=== PATIENT | male | born 1945 | race Caucasian/White ===

== ENCOUNTER 2016-12-11 11:27 | Inpatient (IN) | payer MEDICARE, OTHER ==
--- NOTE | 2016-12-11 11:29 | ED Physician Chart ---
Chief Complaint/HPI - Patient Information Date Seen:: 12/11/16 Time Seen:: 11:29 Chief Complaint:: CHEST PAIN History of Present Illness:: This 71-year-old male presents with a three-hour history of pain in the left upper chest. He's been having similar pains over the past 6 months intermittently and 3 months ago and had a treadmill test which was unremarkable. He rates the severity of the pain as a 7/10 and the pain radiates to his left shoulder and somewhat into his left upper extremity. There is no pleuritic component to the chest pain. He describes it mainly as cramping in nature. No associated nausea, shortness of breath or diaphoresis. The patient does not smoke and drinks only occasionally. The patient does not have hypertension or diabetes. The patient does have hypercholesterolemia. Allergies:: Allergies Allergy/AdvReac Type Severity Reaction Status Date / Time MDX Cephalexin [From Keflex] Allergy Verified 11/29/15 12:50 Past Medical History - Past Medical History Past Medical History: Dyslipidemia Social History: Non Smoker Employment:: Occasional alcohol and no use of illicit drugs. Surgical History: other (patient had back surgery 15 years ago.) Family Medical History - Family Member Daughter Ethnicity: Hx Family Cancer: No Hx Family Hypertension: No Hx Family Stroke: No Hx Family Seizures: No Hx Family Dementia: No Hx Family AIDS: No Hx Family HIV: No Hx Family COPD: No Hx Family Psychiatric Problems: No Hx Family Tuberculosis: No Physical Exam - Physical Examination General/Constitutional: Well-developed, well-nourished, Alert, Non-toxic appearing, Ambulatory Other Gen/Cons comments:: Does not appear to be in significant distress. Head: Atraumatic Eyes: Lids, conjuctiva normal, PERRL, EOMI Skin: Nl inspection, No rash, No skin lesions, No ecchymosis, Well hydrated, No lymphadenopathy ENMT: External ears, nose nl, Nasal exam nl, Lips, teeth, gums nl, Oropharynx nl , Tonsils nl Neck: Nontender, Full ROM w/o pain, No JVD, No nuchal rigidity, No mass, No stridor Respiratory: Nl effort/Exclusion, Clear to Auscultation, No Wheeze/Rhonchi/Rales Other Respiratory comments:: Chest wall is nontender to palpation. Cardio Vascular: RRR, No murmur, gallop, rubs, NL S1 S2 Other Cardio Vascular comments:: Good pulses in all 4 extremities. GI: No tenderness/rebounding/guarding, No organomegaly, No hernia, Normal BS's, Nondistended, No mass/bruits, No McBurney tenderness : No CVA tenderness Extremities: No tenderness or effusion, Full ROM, normal strength in all extremities, No edema Other Extremities comments:: No calf Tenderness and Homans sign is negative. Neuro/Psych: Alert/oriented, Normal sensory exam, Normal motor strength, Judgement/insight normal, Mood normal, Normal gait Misc: No paraspinal tenderness Labs/Radiology/EKG Results - Lab Results Results: Single view chest x-ray: No cardiomegaly. No evidence of CHF. No areas of pulmonary consolidation or infiltrate. There appears to be atelectatic changes in the left lung base. No pneumothorax. No areas of pulmonary consolidation. Impression: No acute cardiopulmonary findings. EKG: Normal sinus rhythm at a rate of 62 with no ectopy. [place] is normal. Normal GA interval. QRS duration. Will QT interval. Patient has very low voltage in the frontal plane. No ST segment elevation or depression normal T waves. No Q waves. IMPRESSION: No acute ischemic findings. Laboratory Tests 12/11/16 12/11/16 12/11/16 11:40 11:40 11:40 WBC 6.7 RBC 5.21 Hgb 15.2 Hct 45.1 MCV 86.5 MCH 29.2 MCHC Differential 33.8 RDW 12.6 Plt Count 135 L D MPV 8.3 Neutrophils % 51.0 Lymphocytes % 35.7 Monocytes % 8.0 Eosinophils % 4.8 Basophils % 0.5 Sodium 137 Potassium 3.7 Chloride 103 Carbon Dioxide 28.1 Anion Gap 9.6 BUN 14 Creatinine 0.8 Est GFR ( Amer) > 60.0 Est GFR (Non-Af Amer) > 60.0 BUN/Creatinine Ratio 17.5 Glucose 109 H Calcium 9.7 Total Bilirubin 0.6 AST 17 ALT 25 Alkaline Phosphatase 89 Troponin I < 0.01 L B-Natriuretic Peptide Total Protein 6.9 Albumin 4.3 Globulin 2.6 Albumin/Globulin Ratio 1.7 TSH 12/11/16 12/11/16 12/12/16 11:40 20:35 04:30 WBC RBC Hgb Hct MCV MCH MCHC Differential RDW Plt Count MPV Neutrophils % Lymphocytes % Monocytes % Eosinophils % Basophils % Sodium Potassium Chloride Carbon Dioxide Anion Gap BUN Creatinine Est GFR ( Amer) Est GFR (Non-Af Amer) BUN/Creatinine Ratio Glucose Calcium Total Bilirubin AST ALT Alkaline Phosphatase Troponin I < 0.01 L < 0.01 L B-Natriuretic Peptide 8.7 Total Protein Albumin Globulin Albumin/Globulin Ratio TSH 12/12/16 12/12/16 12/12/16 04:30 04:30 04:30 WBC 6.2 RBC 5.10 Hgb 14.7 Hct 44.3 MCV 86.9 MCH 28.9 MCHC Differential 33.2 RDW 12.5 Plt Count 119 L MPV 8.8 Neutrophils % 53.1 Lymphocytes % 31.5 Monocytes % 9.2 Eosinophils % 5.5 H Basophils % 0.7 Sodium 138 Potassium 3.7 Chloride 107 Carbon Dioxide 28.5 Anion Gap 6.2 L BUN 16 Creatinine 0.7 Est GFR ( Amer) > 60.0 Est GFR (Non-Af Amer) > 60.0 BUN/Creatinine Ratio 22.9 Glucose 113 H Calcium 9.5 Total Bilirubin 0.6 AST 16 ALT 22 Alkaline Phosphatase 85 Troponin I B-Natriuretic Peptide Total Protein 6.5 Albumin 3.9 L Globulin 2.6 Albumin/Globulin Ratio 1.5 TSH 1.21 12/12/16 11:40 WBC RBC Hgb Hct MCV MCH MCHC Differential RDW Plt Count MPV Neutrophils % Lymphocytes % Monocytes % Eosinophils % Basophils % Sodium Potassium Chloride Carbon Dioxide Anion Gap BUN Creatinine Est GFR ( Amer) Est GFR (Non-Af Amer) BUN/Creatinine Ratio Glucose Calcium Total Bilirubin AST ALT Alkaline Phosphatase Troponin I < 0.01 L B-Natriuretic Peptide Total Protein Albumin Globulin Albumin/Globulin Ratio TSH The CBC and comprehensive metabolic panel were within normal parameters except for a few outliers which were not clinically significant. The troponin was within the normal range as was the BNP. Assessment - Assessment General Assessment: CASE SUMMARY: the 71-year-old male presents with a three-hour history of upper [place] Substernal chest pain that radiates to the left shoulder tip and into the left upper extremity. The patient described the severity of the pain as being a 7/10. The pain was crampy in nature and did not radiate into the back or anterior neck. The EKG was negative for any ischemic findings. The chest x- ray showed borderline cardiomegaly but no acute cardiopulmonary findings. The serum troponin was within the normal range. The patient's pain was addressed by two doses of sublingual nitroglycerin, 400 g. Patient had almost complete relief of pain after the second nitrile. He was also given a dose of aspirin, 162 mg. Patient will be admitted to a telemetry bed for further diagnostic testing, observation and treatment as indicated. Y MDM DDX SUBSTERNAL CHEST PAIN. NOT AORTIC DISSECTION BASED ON THE PATIENT'S HISTORY AND PHYSICAL EXAMINATION and no mediastinal whitening on the CXR. NOT Acute Pulmonary Embolism based on a Well's score "0". NOT Acute pericarditis based on the character of the pain and no EKG finings that would suggest pericarditis. NOT pneumonia based on negative CXR. NOT a pneumothorax based on a negative CXR. CRITICAL CARE: 45 MINUTES NOT COUNTING ANY BILLED FOR PROCEDURES. CARE FOR SUBSTERNAL CHEST PAIN THAT COULD BE AN ACUTE CORONARY SYNDROME WITH PO ASPIRIN AND SUBLINUAL NITROGLYCERINE THAT RELIEVED THE PATIENT'S PAIN. ED Septic Shock - . Is Septic Shock (SBP<90, OR Lactate>4 mmol\\L) present?: No Reassessment (Disposition) - Reassessment Reassessment Condition:: Improved - Diagnosis Diagnosis:: ACUTE CHEST PAIN, RULE OUT ACUTE CORONARY SYNDROME ED Discharge Plan - Patient Disposition Admit/Discharge/Transfer: Acute Care w/in this hosp Condition at Disposition: Improved
[2016-12-11 11:43] VITALS: BP 116/66
[2016-12-11] MEDS ORDERED: Aspirin 81mg Chewable Tab PO ONE (11:55)
[2016-12-11] MEDS ORDERED: Aspirin 81mg Chewable Tab ONE (11:57)
[2016-12-11 11:58] LABS: % BASOPHILS 0.5 % (0.0-2.0); % EOSINOPHILS 4.8 % (0.0-5.0); % LYMPHOCYTES 35.7 % (20.0-50.0); HEMATOCRIT 45.1 % (39.0-49.0); HEMOGLOBIN 15.2 gm/dL (12.6-17.4); MEAN CELL VOLUME 86.5 fl (80-99); MEAN CORPUSCULAR HEMOGLOBIN 29.2 pg (27.0-31.0); MEAN CORPUSCULAR HGB CONC 33.8 pg (28.0-36.0); MEAN PLATELET VOLUME 8.3 fl; NEUTROPHILE ABSOLUTE 3.5 Th/cmm (1.8-8.0); PLATELET COUNT 135 Th/cmm (150-400); RED BLOOD COUNT 5.21 Mil/cmm (3.80-5.80); RED CELL DISTRIBUTION WIDTH 12.6 % (11.5-20.0); WHITE BLOOD COUNT 6.7 Th/cmm (4.8-10.8)
--- NOTE | 2016-12-11 12:25 | Diagnostic Imaging Report ---
CHEST X-RAY: AP view INDICATION: pain COMPARISON: 11/29/2015 FINDINGS: No focal consolidation identified. Right basal atelectasis noted. Heart size is normal. There is atherosclerosis of the aortic arch. Osseous structures are intact. IMPRESSION: No focal consolidation identified. Right basal atelectasis. Atherosclerotic vascular disease.
[2016-12-11 13:05] LABS: ALB/GLOB RATIO 1.7 (1.0-1.8); ALKALINE PHOSPHATASE 89 U/L (34-104); BILIRUBIN,TOTAL 0.6 mg/dL (0.3-1.0); BUN - UREA NITROGEN 14 mg/dL (7-25); BUN/CREATININE RATIO 17.5; CALCIUM SERUM 9.7 mg/dL (8.6-10.3); CARBON DIOXIDE 28.1 mEq/L (21.0-31.0); CREATININE - SERUM 0.8 mg/dL (0.7-1.3); GLUCOSE 109 mg/dL (70-105); SGOT 17 U/L (13-39); SGPT/ALT 25 U/L (7-52)
[2016-12-11 13:29] LABS: POTASSIUM SERUM 3.7 mEq/L (3.5-5.1); SODIUM SERUM 137 mEq/L (136-145)
[2016-12-11 14:10] LABS: ANION GAP 9.6 (7.0-16.0); CHLORIDE 103 mEq/L (98-107)
[2016-12-11] MEDS ORDERED: Morphine Sulfate 2 mg/mL 1mL Syr IVP PRN ×2 (16:17)
--- NOTE | 2016-12-11 22:55 | Admit Criteria Form ---
Admit Criteria Forms - Admit Criteria Diagnosis: CHEST PAIN Clinical Indications for Admission to Inpatient Care (Place 'X' for any and all applicable criteria): Admission is indicated for chest pain and ANY ONE of the following(1)(2)(3)(4)(5 ): [ ]I. Angina with acute coronary syndrome (Also use Myocardial Infarction or Angina guideline) [ ]II. Hemodynamic instability [ ]III. Angina needing acute intervention as indicated by ALL of the following( 11)(12): [ ]a) Unstable angina is present as indicated by angina that is ANY ONE of the following: [ ]i) New onset [ ]ii) Nocturnal [ ]iii) Prolonged at rest [ ]iv) Progressive [ ]b) Angina warrants acute intervention as indicated by ANY ONE of the following: [ ]i) Recurrent angina (e.g, not responding as previously to treatment) [ ]ii) Angina at rest or with low-level activities despite initial medical therapy [ ]iii) New or presumably new ST-segment depression on ECG [ ]iv) Signs or symptoms of heart failure (eg, dyspnea, pulmonary edema) [ ]v) New or worsening mitral regurgitation [ ]vi) Hemodynamic instability [ ]vii) Dangerous arrhythmia (eg, sustained ventricular tachycardia) [ ]viii) History of percutaneous coronary intervention within 6 months [ ]ix) History of coronary artery bypass graft surgery [ ]x) CHARLA risk score of 2 or greater[A] [ ]xi) History of Diabetes(14) [ ]xii) High-risk cardiac ischemia findings on noninvasive testing (e.g, echocardiogram, treadmill testing, nuclear scan) [ ]xiii) Chronic renal insufficiency (ie, estimated GFR less than 60 mL/min/1.732m) [ ]xiv) Left ventricular ejection fraction less than 40% [ ]IV. Evidence of [place] (eg, cardiac biomarkers positive, ST-segment elevation on ECG) also use Myocardial Infarction Criteria Form. [ ]V. Pulmonary edema [ ]. Respiratory distress [X]VII. Chest pain indicative of serious diagnosis other than coronary artery disease (eg, aortic dissection) [ ]VIII. Contraindications and/or Inappropriate clinical situations for Observational Care in patients with Chest Pain, when ANY ONE of the following is required: [ ]a) Patient with risk factor for pulmonary embolism, acute coronary syndrome and myocardial infarction (18) [ ]b) Patient with Pulmonary embolism require an average LOS of 4.3 days, therefore emergency department observation management is inappropriate 18,23 [ ]c) Painful condition/s in the elderly, have the highest rate of recidivism after emergency department observation management (10.8%) 20,21,22 [ ]d) Elevated cardiac biomarker requires intensive and exhaustive care (19) [ ]IX. General contraindications and/or Inappropriate clinical situations for Observational Care in patients with Chest Pain, when ANY ONE of the following is required: [ ]a) Prediction of prolongation of LOS based on ANY ONE of the following may be considered as a contraindication for observational care 2, 3, 4, 5, 6, 7, 8, 9, 10, 11 [ ]i) Age > 65 yrs. [ ]ii) Patient arriving by ambulance [ ]iii) Patient with high acuity [ ]iv) Patient requiring vital sign monitoring [ ]v) Patient on IV medication [ ]b) Systolic blood pressures 180mmHg 3,12 [ ]c) Patient with altered mental status including delirium and other alteration of consciousness, (3) [ ]d) Patient whose discharge disposition will be to a [place] [facility] home or rehabilitation home should not be managed in Emergency Department Observation Unit. CMS rule requires 3 days hospital stay before such placement. 3,13 [ ]e) Patient with failure to thrive due to broad array of etiologies 3,16,17 [ ]f) Inability to ambulate 3,14 Extended stay beyond goal length of stay may be needed for (1)(28): [ ]a) Specific condition diagnosed after evaluation (eg, pulmonary embolism, aortic dissection) [ ]b) Unstable angina [ ]c) Continued suspicion of acute coronary syndrome with inability to complete needed cardiac evaluation (eg, patient clinically unable to undergo stress testing) [ ]d) Myocardial infarction (Contents from ANGINA and CHEST PAIN clinical indications for admission to inpatient care have been integrated in this form) The original [employer] content created by [employer] has been revised. The portions of the content which have been revised are identified through the use of italic text or in bold, and [facility] has neither reviewed nor approved the modified material. All other unmodified content is copyright [employer]. Please see references footnoted in the original [facility] edition 2016 Admit Criteria Met?: Yes
--- NOTE | 2016-12-12 00:44 | History & Physical ---
CHIEF COMPLAINT: Chest pain. HISTORY OF PRESENT ILLNESS: This is a 71-year-old male with a 3-hour history of chest pain that radiates on the left side. The patient states that he has been having this pain off and on for about 6 months. The patient states that he recently had a stress test that was done and it was negative. The patient denies any shortness of breath. For this reason, the patient was admitted. PAST MEDICAL HISTORY: Dyslipidemia. SOCIAL HISTORY: Denies smoking and alcohol. PAST SURGICAL HISTORY: Back surgery. FAMILY HISTORY: Noncontributory. REVIEW OF SYSTEMS: GENERAL: Denies any fevers and chills. CARDIOVASCULAR: Denies any chest pain. RESPIRATORY: Denies any shortness of breath. All other systems are reviewed and are negative. PHYSICAL EXAMINATION: GENERAL: The patient is well developed, well nourished, in no apparent distress. VITAL SIGNS: Temperature 98, heart rate 56, blood pressure 126/61, respirations 18, O2 saturation 96%. HEAD: Normocephalic, atraumatic. NECK: Nontender. Full range of motion. HEART: Regular rhythm. RESPIRATORY: ____ clear to auscultation. ABDOMEN: Soft, nontender, nondistended. DIAGNOSTIC DATA: Chest x-ray: No cardiomegaly, no evidence of CHF. LABORATORY DATA: WBC 6.7, hemoglobin and hematocrit 16.3 and 45.1, platelets 135. Troponin 0.01. ASSESSMENT: 1. Chest pain, rule out acute coronary syndrome. 2. Right foot pain. 3. Hyperlipidemia. 4. Hypertension. PLAN: We will get Cardiology on case. We will do series of troponin. We will give the patient aspirin and ____. We will continue to monitor ____ the patient. JOB# [id number]
[2016-12-12 05:12] LABS: % BASOPHILS 0.7 % (0.0-2.0); % EOSINOPHILS 5.5 % (0.0-5.0); % LYMPHOCYTES 31.5 % (20.0-50.0); % MONOCYTES 9.2 % (2.0-10.0); % NEUTROPHILS 53.1 % (40.0-80.0); HEMATOCRIT 44.3 % (39.0-49.0); HEMOGLOBIN 14.7 gm/dL (12.6-17.4); MEAN CELL VOLUME 86.9 fl (80-99); MEAN CORPUSCULAR HEMOGLOBIN 28.9 pg (27.0-31.0); MEAN CORPUSCULAR HGB CONC 33.2 pg (28.0-36.0); MEAN PLATELET VOLUME 8.8 fl; NEUTROPHILE ABSOLUTE 3.3 Th/cmm (1.8-8.0); PLATELET COUNT 119 Th/cmm (150-400); RED CELL DISTRIBUTION WIDTH 12.5 % (11.5-20.0); WHITE BLOOD COUNT 6.2 Th/cmm (4.8-10.8)
[2016-12-12 05:31] LABS: ALB/GLOB RATIO 1.5 (1.0-1.8); ALKALINE PHOSPHATASE 85 U/L (34-104); ANION GAP 6.2 (7.0-16.0); BILIRUBIN,TOTAL 0.6 mg/dL (0.3-1.0); BUN - UREA NITROGEN 16 mg/dL (7-25); BUN/CREATININE RATIO 22.9; CALCIUM SERUM 9.5 mg/dL (8.6-10.3); CARBON DIOXIDE 28.5 mEq/L (21.0-31.0); CHLORIDE 107 mEq/L (98-107); CREATININE - SERUM 0.7 mg/dL (0.7-1.3); GLUCOSE 113 mg/dL (70-105); POTASSIUM SERUM 3.7 mEq/L (3.5-5.1); SGOT 16 U/L (13-39); SGPT/ALT 22 U/L (7-52); SODIUM SERUM 138 mEq/L (136-145)
[2016-12-12] MEDS ORDERED: Aspirin 81mg Chewable Tab PO SCH (09:00)
--- NOTE | 2016-12-12 10:05 | General Progress Note ---
Objective - Results Result Diagrams: 12/12/16 04:30 12/12/16 04:30 Recent Labs: Laboratory Last Values WBC 6.2 Th/cmm (4.8-10.8) 12/12/16 04:30 RBC 5.10 Mil/cmm (3.80-5.80) 12/12/16 04:30 Hgb 14.7 gm/dL (12.6-17.4) 12/12/16 04:30 Hct 44.3 % (39.0-49.0) 12/12/16 04:30 MCV 86.9 fl (80-99) 12/12/16 04:30 MCH 28.9 pg (27.0-31.0) 12/12/16 04:30 MCHC Differential 33.2 pg (28.0-36.0) 12/12/16 04:30 RDW 12.5 % (11.5-20.0) 12/12/16 04:30 Plt Count 119 Th/cmm (150-400) L 12/12/16 04:30 MPV 8.8 fl 12/12/16 04:30 Neutrophils % 53.1 % (40.0-80.0) 12/12/16 04:30 Lymphocytes % 31.5 % (20.0-50.0) 12/12/16 04:30 Monocytes % 9.2 % (2.0-10.0) 12/12/16 04:30 Eosinophils % 5.5 % (0.0-5.0) H 12/12/16 04:30 Basophils % 0.7 % (0.0-2.0) 12/12/16 04:30 Sodium 138 mEq/L (136-145) 12/12/16 04:30 Potassium 3.7 mEq/L (3.5-5.1) 12/12/16 04:30 Chloride 107 mEq/L (98-107) 12/12/16 04:30 Carbon Dioxide 28.5 mEq/L (21.0-31.0) 12/12/16 04:30 Anion Gap 6.2 (7.0-16.0) L 12/12/16 04:30 BUN 16 mg/dL (7-25) 12/12/16 04:30 Creatinine 0.7 mg/dL (0.7-1.3) 12/12/16 04:30 Est GFR ( Amer) > 60.0 ml/min (>90) 12/12/16 04:30 Est GFR (Non-Af Amer) > 60.0 ml/min 12/12/16 04:30 BUN/Creatinine Ratio 22.9 12/12/16 04:30 Glucose 113 mg/dL (70-105) H 12/12/16 04:30 Calcium 9.5 mg/dL (8.6-10.3) 12/12/16 04:30 Total Bilirubin 0.6 mg/dL (0.3-1.0) 12/12/16 04:30 AST 16 U/L (13-39) 12/12/16 04:30 ALT 22 U/L (7-52) 12/12/16 04:30 Alkaline Phosphatase 85 U/L (34-104) 12/12/16 04:30 Troponin I < 0.01 ng/mL (0.01-0.05) L 12/12/16 04:30 B-Natriuretic Peptide 8.7 pg/mL (5.0-100.0) 12/11/16 11:40 Total Protein 6.5 gm/dL (6.0-8.3) 12/12/16 04:30 Albumin 3.9 gm/dL (4.2-5.5) L 12/12/16 04:30 Globulin 2.6 gm/dL 12/12/16 04:30 Albumin/Globulin Ratio 1.5 (1.0-1.8) 12/12/16 04:30 TSH 1.21 uIU/ml (0.34-5.60) 12/12/16 04:30 - Physical Exam Vitals and I&O: Vital Signs Temp 96.6 F 12/12/16 07:51 Pulse 50 12/12/16 07:51 Resp 18 12/12/16 07:53 BP 118/65 12/12/16 07:51 Pulse Ox 98 12/12/16 07:51 Intake & Output 12/11/16 12/12/16 12/12/16 18:59 06:59 18:59 Intake Total 240 200 Balance 240 200 Weight (lbs) 81.647 kg Intake: Oral 240 200 Other: # Voids 2 # Bowel Movements 1 Active Medications: Current Medications Acetaminophen (Tylenol) 650 mg PO Q4H PRN PRN Reason: mild pain Stop: 02/10/17 04:02 Last Admin: 12/12/16 04:15 Dose: 650 mg Aspirin (Aspirin Chewable) 81 mg PO DAILY HOMERO Stop: 02/10/17 08:59 Last Admin: 12/12/16 09:03 Dose: 81 mg Morphine Sulfate (Morphine) 2 mg IVP Q6H PRN PRN Reason: Pain (Moderate-Severe) Stop: 02/09/17 16:16 Morphine Sulfate (Morphine) 1 mg IVP Q6H PRN PRN Reason: Pain (Mild) Stop: 02/09/17 16:16 Ondansetron HCl (Zofran) 4 mg IV Q4H PRN PRN Reason: Nausea Stop: 02/09/17 16:16 Assessment/Plan - Problem List Patient Problems: All Active Problems Cough (Acute) R05
--- NOTE | 2016-12-12 11:44 | Diagnostic Imaging Report ---
Right foot 3 views Indication: Pain along the dorsal foot Comparison: none Findings: Moderate degenerative changes are seen with marginal osteophytic spurring. No evidence of acute fracture. Mild soft tissue swelling of the dorsal midfoot is noted. Small plantar calcaneal spur is noted. Impression: No evidence of an acute fracture. Moderate degenerative changes Mild soft tissue swelling of the dorsal midfoot. Small plantar calcaneal spur. In the setting of trauma, if clinical symptoms persist and there is continued concern for an occult fracture, follow up exams in 5-7 days is suggested.
--- NOTE | 2016-12-13 04:48 | Consultation ---
The patient of Dr. Adames. HISTORY AND PHYSICAL: This is a 71-year-old male patient who has been complaining of chest pain, pain in the right foot, following this patient came to the Emergency Room and the patient is admitted. No history of PND or orthopnea. PAST MEDICAL HISTORY: Hyperlipidemia, hypertension. FAMILY HISTORY: Unremarkable. SOCIAL HISTORY: No history of smoking, alcohol abuse. ALLERGIES: No known allergies. PHYSICAL EXAMINATION: VITAL SIGNS: Blood pressure 130/80, pulse 70, respirations 20. HEAD: Normocephalic. No lumps or bumps. EYES: Pupils equal, reactive to light. Fundi show AV nicking, sclerae white, conjunctivae pink. NECK: Carotid 2+. Normal upstroke. JVD flat. Thyroid not palpable. Lymph nodes not palpable. CHEST: Shows increased AP diameter. No kyphosis, scoliosis. LUNGS: Bilateral bronchovesicular breath sounds. HEART: PMI fifth intercostal space with lateral to midclavicular line. S1, S2. No S3, S4. Systolic murmur, grade 2/6, lower left sternal border without radiation. ABDOMEN: Soft. Liver, spleen not palpable. No organomegaly. Bowel sounds are active. NEUROLOGIC: Unremarkable. EXTREMITIES: Peripheral pulses 2+. No pedal edema. CLINICAL IMPRESSION: Chest pain, unlikely coronary artery disease, thrombocytopenia, right foot pain, hyperlipidemia, hypertension. PLAN: Troponin levels are normal. The patient to get echocardiogram. JOB# [id number]
== END 2016-12-12 20:30 | disposition home or self-care (01) | DRG 313 ==
LOC: ER 11:27 → TELE 14:44
PROVIDERS: ADMIT Internal Medicine; ATTEND Internal Medicine
DX: R07.89 Other chest pain (principal); D69.6 Thrombocytopenia, unspecified; E78.5 Hyperlipidemia, unspecified; R05 Cough; M79.671 Pain in right foot; I10 Essential (primary) hypertension; Z88.1 Allergy status to other antibiotic agents
CPT/HCPCS: 36415-UA; 71010-TC; 73620-TC-RT; 80053-TC; 83880-TC; 84443-TC; 84484-TC; 85025-TC; Z7610